=== PATIENT | female | born 1965 | race Two or more races ===

== ENCOUNTER 2019-08-17 13:29 | Emergency (ER) | payer OTHER ==
[~2019-08-17] VITALS: Ht 157.5 cm; Wt 96.2 kg
--- NOTE | 2019-08-17 13:40 | NUR ---
HEADACHE, DIZZY S/P BOX APPROX 40LBS FELL ON TOP HER HEAD. ENDORSES +KO ALSO C/O R WRIST PAIN.
--- NOTE | 2019-08-17 14:20 | NUR ---
taken to ct
--- NOTE | 2019-08-17 15:27 | NUR ---
PATIENT AMBULATORY, NO DISTRESS NOTED. Patient discharged to home in stable condition. Written and verbal after care instructions given. Patient verbalizes understanding of instruction.
[2019-08-17 15:28] VITALS: BP 163/83
--- NOTE | 2019-08-17 15:28 | NUR ---
Patient discharged to home in stable condition. Written and verbal after care instructions given. Patient verbalizes understanding of instruction.
== END 2019-08-17 15:28 | disposition home or self-care (01) ==
LOC: ER 13:29
DX: S06.0X0A Concussion without loss of consciousness, initial encounter (principal); S16.1XXA Strain of muscle, fascia and tendon at neck level, initial encounter; S60.221A Contusion of right hand, initial encounter; Z98.890 Other specified postprocedural states; W20.8XXA Other cause of strike by thrown, projected or falling object, initial encounter; Y93.89 Activity, other specified; Y92.89 Other specified places as the place of occurrence of the external cause; Y99.8 Other external cause status
CPT/HCPCS: 70450-TC; 72125-TC; 73130-TC